=== PATIENT | female | born 2000 | race Caucasian/White ===

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

== ENCOUNTER → 2019-07-01 | Outpatient (CLI) | payer SELFPAY ==
--- NOTE | 2019-07-01 16:25 | RADIOLOGY REPORT (SQ) ---
EXAM DESCRIPTION: U/S [id number] TRNABD 1GES W/ODOP COMPLETED DATE/TIME: 07/01/2019 2:55 pm REASON FOR STUDY: Z34.01 ENCNTR FOR SUPRVSN OF NORMAL FIRST PREG, FIRST TRIMESTER Z34.01 ENCNTR FOR SUPRVSN OF NORMAL FIRST PREG, FIRST TRIMES COMPARISON: None. TECHNIQUE: Transabdominal static and realtime grayscale images acquired of the pelvis. Additional se lected spectral and color Doppler images recorded. All images stored on PACs. bHCG: Not available. CLINICAL DATES: LMP 05/06/2019. 8 weeks 0 days. LIMITATIONS: None. FINDINGS: FETUS: Single Living intrauterine . ULTRASOUND EGA: 8 weeks 0 days. ULTRASOUND MONICA: 02/10/2020 EFW: Not applicable less than 20 weeks. CRL: 1.6 cm. FHR: 160 beats per minute. SURVEY: Too early to assess. AMNIOTIC FLUID: Adequate amount. PLACENTA: Not yet developed due to early gestation. SUBCHORIONIC BLEED: No SIZE OF BLEED: Not applicable. UTERUS: No masses. No anomalies. CERVICAL LENGTH: 1.7 cm. Closed. RIGHT ADNEXA: Normal ovary with normal vascular flow. 3 x 2.1 x 1.9 cm. No adnexal free fluid. No adnexal masses. LEFT ADNEXA: Normal ovary with normal vascular flow. 2.4 x 1.6 x 1.5 cm. No adnexal free fluid. No adnexal masses. FREE FLUID: None. OTHER: No other significant finding. IMPRESSION: LIVING INTRAUTERINE . EGA 8 weeks 0 days. Trimester of : First trimester - 0 to 13 weeks. TECHNICAL DOCUMENTATION: JOB ID: [id number] [employer]- All Rights Reserved rev-10/04 Reading location - IP/workstation name: [email or web address]
== END ==
LOC: RAD 14:26
PROVIDERS: ATTEND Midwife
DX: Z34.01 Encounter for supervision of normal first pregnancy, first trimester (principal); Z3A.08 8 weeks gestation of pregnancy
CPT/HCPCS: 76801

== ENCOUNTER → 2019-08-17 | Outpatient (CLI) | payer SELFPAY ==
--- NOTE | 2019-08-17 15:39 | RADIOLOGY REPORT (SQ) ---
EXAM DESCRIPTION: U/S OB 14+ TRNABD 1GES W/O DOP IMAGES COMPLETED DATE/TIME: 08/17/2019 2:59 pm REASON FOR STUDY: Z34.01 ENCNTR FOR SUPRVSN OF NORMAL FIRST PREG, FIRST TRIMESTER Z34.01 ENCNTR FOR SUPRVSN OF NORMAL FIRST PREG, FIRST TRIMES COMPARISON: None. TECHNIQUE: Static and Dynamic grayscale imaging performed of gravid uterus using transabdominal appr oach. Additional selected color Doppler and spectral images recorded. All stored on PACS. LIMITATIONS: None. FINDINGS: FETUSES SEEN:1 EGA: 14 weeks 4 days. Calculated using BPD,FL,HC,AC documented on images. No discrepancy with clinic al dates. MONICA: 02/11/2020 EFW: Not calculated. Grams PERCENTILE: Not applicable. LVP: 4.1 x 2.6 cm. PLACENTA: Anterior. GRADE: I PRESENTATION: Variable. HEART RATE: 147 beats per minute. anatomy was not assessed. MATERNAL ADNEXA: Maternal ovaries not visualized. CERVICAL LENGTH: 2.8 cm. Closed. OTHER: No other significant finding. IMPRESSION: LIVING INTRAUTERINE . ESTIMATED GESTATIONAL AGE 14 weeks 4 days. anatomy was not assessed. Trimester of : Second trimester - 13 weeks 1 day to 27 weeks 6 days. TECHNICAL DOCUMENTATION: JOB ID: [id number] 2010 [employer]- All Rights Reserved Reading location - IP/workstation name: [email or web address]
== END ==
LOC: RAD 13:46
PROVIDERS: ATTEND Midwife
DX: Z34.82 Encounter for supervision of other normal pregnancy, second trimester (principal); Z3A.14 14 weeks gestation of pregnancy
CPT/HCPCS: 76805

== ENCOUNTER → 2019-09-24 | Outpatient (CLI) | payer MEDICAID ==
--- NOTE | 2019-09-24 15:18 | RADIOLOGY REPORT (SQ) ---
EXAM DESCRIPTION: U/S OB 14+ TRNABD 1GES W/O DOP IMAGES COMPLETED DATE/TIME: 09/24/2019 3:04 pm REASON FOR STUDY: ENCNTR FOR SUPRVSN OF NORMAL FIRST PREG, SECOND TRIMESTE Z34.02 ENCNTR FOR SUPRVS N OF NORMAL FIRST PREG, SECOND TRIME COMPARISON: 08/17/2019 TECHNIQUE: Static and Dynamic grayscale imaging performed of gravid uterus using transabdominal appr oac. Additional selected color Doppler and spectral images recorded. All stored on PACS. LIMITATIONS: None. FINDINGS: FETUSES SEEN:1 EGA: 19 weeks 3 days. Calculated using BPD,FL,HC,AC documented on images. No discrepancy with clinic al dates. MONICA: 02/15/2020 EFW: 290 grams PERCENTILE: Not available. AIMEE: 7.8. LBP: 3.0 X 2.0 CM PLACENTA: Anterior location. GRADE: I PRESENTATION: Breech. ANATOMY: HEART RATE: 149 beats per minute. FOUR CHAMBER HEART: Visualized. THREE VESSEL CORD: Not visualized. CORD INSERTION: Not visualized. KIDNEYS AND BLADDER: Not visualized. STOMACH: Visualized. Appears normal. SPINE: Normal as visualized. BRAIN AND LATERAL VENTRICLES: Visualized. Appear normal. OTHER: No other significant finding. MATERNAL ADNEXA: Maternal ovaries not visualized. CERVICAL LENGTH: 2.7 cm. Closed. OTHER: No other significant finding. IMPRESSION: LIVING INTRAUTERINE . ESTIMATED GESTATIONAL AGE 19 WEEKS 3 DAYS. AIMEE IS 7.8 CONSISTENT WITH OLIGOHYDRAMNIOS. LVP IS MEASURED AT 3.0 X 2.0 CM. Trimester of : Second trimester - 13 weeks 1 day to 27 weeks 6 days. TECHNICAL DOCUMENTATION: JOB ID: [id number] [employer]- All Rights Reserved Reading location - IP/workstation name: [email or web address]
== END ==
LOC: RAD 13:51
PROVIDERS: ATTEND Midwife
DX: O41.02X0 Oligohydramnios, second trimester, not applicable or unspecified (principal); Z3A.19 19 weeks gestation of pregnancy
CPT/HCPCS: 76805

== ENCOUNTER 2019-11-30 14:59 | Outpatient (CLI) | payer MEDICAID ==
[~2019-11-30 14:59] MED LIST: BETAMET ACET/BETAMET NA INJ 6 MG/1 ML IM ONE
[2019-11-30] MEDS ORDERED: BETAMET ACET/BETAMET NA INJ 6 MG/1 ML ONE (15:49)
[2019-11-30] MEDS ORDERED: MAGNESIUM SULFATE 20 GM/500 ML RTUINJ IV PRN (15:50)
[2019-11-30] MEDS ORDERED: BETAMET ACET/BETAMET NA INJ 6 MG/1 ML IM ONE (16:15)
[2019-11-30] MEDS ORDERED: MAGNESIUM SULFATE 4 GM/100 ML RTUPB IV ONE ×2 (16:15→16:22)
[2019-11-30 16:16] LABS: ABSOLUTE BASOPHILS # (AUTO) 0.1 10^3/uL (0.0-0.2); ABSOLUTE EOSINOPHILS # (AUTO) 0.1 10^3/uL (0.0-0.6); ABSOLUTE LYMPHOCYTES (AUTO) 1.9 10^3/uL (0.5-4.7); ABSOLUTE NEUT (AUTO) 5.6 10^3/uL (1.7-8.2); BASOPHILS % (AUTO) 0.6 % (0-2); EOSINOPHILS % (AUTO) 0.6 % (0-6); HEMATOCRIT 37.3 % (36.0-47.0); LYMPHOCYTES % (AUTO) 21.9 % (13-45); MEAN CORPUSCULAR HEMOGLOBIN 31.5 pg (27.0-33.4); MEAN CORPUSCULAR HGB CONC 34.8 g/dL (32.0-36.0); MEAN CORPUSCULAR VOLUME 91 fl (80-97); PLATELET COUNT 302 10^3/uL (150-450); RED BLOOD COUNT 4.12 10^6/uL (3.72-5.28); RED CELL DISTRIBUTION WIDTH 13.1 % (11.5-14.0); SEGMENTED NEUTROPHILS % (AUTO) 64.9 % (42-78); TOTAL CELLS COUNTED % (AUTO) 100 %; WHITE BLOOD COUNT 8.7 10^3/uL (4.0-10.5)
[2019-11-30] MEDS ORDERED: MAGNESIUM SULFATE 20 GM/500 ML RTUINJ IV ONE (16:22)
[2019-11-30 16:45] LABS: ALBUMIN 3.4 g/dL (3.5-5.0); ANION GAP 7 (5-19); BILIRUBIN,TOTAL 0.2 mg/dL (0.2-1.3); BLOOD UREA NITROGEN 8 mg/dL (7-20); CARBON DIOXIDE 19 mmol/L (22-30); CHLORIDE 109 mmol/L (98-107); GLUCOSE 70 mg/dL (75-110); NEONATAL BILIRUBIN RESULT 0.3 mg/dL (0.1-1.1); POTASSIUM 4.6 mmol/L (3.6-5.0); TOTAL PROTEIN 5.9 g/dL (6.3-8.2); URIC ACID 5.9 mg/dL (2.5-6.2)
--- NOTE | 2019-11-30 16:48 | PDOC TRANSFER SUMMARY ---
General Admission Date/PCP: SHANT GAUTHIER CNM Admission Date: 11/30/19 Transfer Date: 11/30/19 Accepting Facility: [facility] Accepting Physician: Dr. Reyes Resuscitation Status: Full Code - Transfer Diagnosis (1) Is this a current diagnosis for this admission?: Yes Diagnosis Summary: 29 5/7 wks. (2) Severe pre-eclampsia Is this a current diagnosis for this admission?: Yes - Transfer Medications Home Medications: Vit No.130/Iron/Folic [ Vitamins] 1 each PO DAILY 11/30/19 Transfer Medications: Current Medications Magnesium Sulfate (Magnesium Sulfate Rtu 4 Gm/100 Ml Premix Bag) 4 gm in 100 mls @ 200 mls/hr IV NOW ONE Stop: 11/30/19 16:44 Magnesium Sulfate (Magnesium Sulfate Rtu 20 Gm/500 Ml Premix) 20 gm in 500 mls @ 50 mls/hr IV CONTINUOUS PRN PRN Reason: THIS MED IS NOT "PRN" Stop: 12/30/19 15:49 - Allergies Allergies/Adverse Reactions: No Known Allergies Allergy (Verified 11/30/19 15:10) Hospital Course Hospital Course: patient was sent from the office for re-evaluation of elevated blood pressures. BPs today were severe range. First episode of mild range pressure were noted on 11/19/2019 and pre-e labs were obtained which the patient did not turn in until this past Saturday on 11/27/19. @4 hour urine returned >2000 mg. Her serology done on 11/19/2019 were normal. Today the patient complained of headache in the office that has resolved. Her bps have remained elevated in the severe ranges. I have initiated ACS protocol and started the patient on Mag Sulfate. Dr. Reyes at [facility] was kind enough to accept the patient for transfer due to concerns for need for very early delivery before 32 weeks and need for Level 4 NICU. Rapid Covid testing has been collected. Physical Exam Vital Signs: Intake & Output 11/29/19 11/30/19 12/01/19 06:59 06:59 06:59 Weight 83.9 kg General appearance: PRESENT: no acute distress, cooperative Extremities exam: PRESENT: +1 edema, other - DTRs +3 Results Laboratory Results: 11/30/19 15:50 11/30/19 15:50 WBC 8.7 RBC 4.12 Hgb 13.0 Hct 37.3 MCV 91 MCH 31.5 MCHC 34.8 RDW 13.1 Plt Count 302 Seg Neutrophils % 64.9 Plan Discharge Plan: proceed with transfer to [facility]. Thank you Dr. Reyes Time Spent: Greater than 30 Minutes
[2019-11-30 16:50] LABS: ALKALINE PHOSPHATASE 101 U/L (38-126); ASPARTATE AMINO TRANSFERASE 19 U/L (14-36)
[2019-11-30 17:02] LABS: APPEARANCE,URINE SLIGHTLY-CLOUDY; BILIRUBIN,URINE NEGATIVE (NEGATIVE); COLOR,URINE YELLOW; GLUCOSE, URINE NEGATIVE (NEGATIVE); KETONES,URINE NEGATIVE (NEGATIVE); LEUKOCYTE ESTERASE,URINE NEGATIVE (NEGATIVE); NITRITE,URINE NEGATIVE (NEGATIVE); PROTEIN,URINE >=500 mg/dL (NEGATIVE); UROBILINOGEN,URINE NEGATIVE mg/dL (<2.0)
[2019-11-30 17:17] LABS: URINE AMPHETAMINES SCREEN NEGATIVE; URINE BENZODIAZEPINES SCREEN NEGATIVE; URINE COCAINE SCREEN NEGATIVE; URINE MARIJUANA (THC) SCREEN NEGATIVE; URINE METHADONE SCREEN NEGATIVE; URINE PHENCYCLIDINE SCREEN NEGATIVE
[2019-11-30 17:18] LABS: URINE BARBITURATES SCREEN NEGATIVE
[2019-11-30] MEDS ORDERED: LABETALOL HCL 200 MG TABLET PO ONE (17:33)
[2019-11-30] MEDS ORDERED: LABETALOL HCL 200 MG TABLET ONE (17:35)
[2019-11-30 17:53] LABS: URINE CREATININE 131.2 mg/dL (16-327)
[2019-11-30 18:57] LABS: UR PRO/CREAT RATIO RESULT 4.7 mg/mg (0.0-0.2)
== END 2019-12-01 | disposition short-term general hospital (02) ==
LOC: LC 14:59
PROVIDERS: ATTEND Obstetrics & Gynecology
DX: O14.13 Severe pre-eclampsia, third trimester (principal); Z20.828 Contact with and (suspected) exposure to other viral communicable diseases; O26.893 Other specified pregnancy related conditions, third trimester; R09.89 Other specified symptoms and signs involving the circulatory and respiratory systems; R51 Headache; R19.7 Diarrhea, unspecified; Z3A.29 29 weeks gestation of pregnancy
CPT/HCPCS: 59899; 94760; 96372; 36415; 83615; 84156; 84550; 82570; 85025; 87635; 80053; 81001; 87081; 80307; J3475 ×2; J3490; J0702; C9803; C1758

== ENCOUNTER 2020-03-18 17:52 | Emergency (ER) | payer MEDICAID ==
--- NOTE | 2020-03-18 18:25 | ER Document Report ---
ED Medical Screen (RME) - General Chief Complaint: Insect Bite Stated Complaint: INSECT BITE ON LEG Time Seen by Provider: 03/18/20 18:20 Primary Care Provider: SHANT GAUTHIER CNM [Primary Care Provider] - Follow up as needed Mode of Arrival: Ambulatory Information source: Patient Notes: 19-year-old female presented to ED for a large swollen painful knot to the left leg just above the knee area on the medial side. She states she has had a small knot there for about 5 years and Saturday it started swelling and now it is large red inflamed. She states she was tested on 03/09/2020 for Covid because she was around people who had Covid. She states she was positive at that time but is still not having any symptoms of the Covid. She is alert oriented respirations regular nonlabored speaking in full sentences. Her weight is 72.5 kg and she is 5 foot 5. I have greeted and performed a rapid initial assessment of this patient. A comprehensive ED assessment and evaluation of the patient, analysis of test results and completion of medical decision making process will be conducted by an additional ED providers. TRAVEL OUTSIDE OF THE [place] IN LAST 30 DAYS: No - Related Data Allergies/Adverse Reactions: No Known Allergies Allergy (Verified 11/30/19 15:10) Past Medical History - Past Medical History Cardiac Medical History: Reports: Hx Heart Murmur - at /resolved Neurological Medical History: Reports: Hx Migraine Renal/ Medical History: Denies: Hx Peritoneal Dialysis GI Medical History: Reports: Hx Gastroesophageal Reflux Disease Past Surgical History: Reports: Hx Oral Surgery - [place] teeth all 4 - Immunizations Immunizations up to date: Yes Hx Diphtheria, Pertussis, Tetanus Vaccination: Yes Physical Exam - Vital signs Vitals: Temp Pulse Resp BP Pulse Ox 98.6 F 93 18 138/106 H 99 03/18/20 18:07 03/18/20 18:07 03/18/20 18:07 03/18/20 18:07 03/18/20 18:07 Course - Vital Signs Vital signs: Temp Pulse Resp BP Pulse Ox 98.6 F 93 18 138/106 H 99 03/18/20 18:07 03/18/20 18:07 03/18/20 18:07 03/18/20 18:07 03/18/20 18:07 Doctor's Discharge - Discharge Referrals: SHANT GAUTHIER CNM [Primary Care Provider] - Follow up as needed
[2020-03-18 21:17] LABS: ABSOLUTE BASOPHILS # (AUTO) 0.1 10^3/uL (0.0-0.2); ABSOLUTE EOSINOPHILS # (AUTO) 0.1 10^3/uL (0.0-0.6); ABSOLUTE LYMPHOCYTES (AUTO) 2.2 10^3/uL (0.5-4.7); ABSOLUTE MONOCYTES (AUTO) 0.5 10^3/uL (0.1-1.4); ABSOLUTE NEUT (AUTO) 3.9 10^3/uL (1.7-8.2); BASOPHILS % (AUTO) 0.8 % (0-2); EOSINOPHILS % (AUTO) 1.9 % (0-6); HEMATOCRIT 41.4 % (36.0-47.0); HEMOGLOBIN 14.7 g/dL (12.0-15.5); LYMPHOCYTES % (AUTO) 32.7 % (13-45); MEAN CORPUSCULAR HEMOGLOBIN 30.2 pg (27.0-33.4); MEAN CORPUSCULAR HGB CONC 35.6 g/dL (32.0-36.0); MEAN CORPUSCULAR VOLUME 85 fl (80-97); MONOCYTES % (AUTO) 6.9 % (3-13); PLATELET COUNT 358 10^3/uL (150-450); RED BLOOD COUNT 4.87 10^6/uL (3.72-5.28); RED CELL DISTRIBUTION WIDTH 12.7 % (11.5-14.0); SEGMENTED NEUTROPHILS % (AUTO) 57.7 % (42-78); TOTAL CELLS COUNTED % (AUTO) 100 %; WHITE BLOOD COUNT 6.7 10^3/uL (4.0-10.5)
[2020-03-18 21:36] LABS: ALBUMIN 4.7 g/dL (3.5-5.0); ALKALINE PHOSPHATASE 67 U/L (38-126); ANION GAP 12 (5-19); ASPARTATE AMINO TRANSFERASE 58 U/L (14-36); BILIRUBIN,DIRECT 0.1 mg/dL (0.0-0.4); BILIRUBIN,TOTAL 0.6 mg/dL (0.2-1.3); BLOOD UREA NITROGEN 14 mg/dL (7-20); CALCIUM 10.4 mg/dL (8.4-10.2); CARBON DIOXIDE 25 mmol/L (22-30); CHLORIDE 104 mmol/L (98-107); GLUCOSE 84 mg/dL (75-110); POTASSIUM 4.3 mmol/L (3.6-5.0); TOTAL PROTEIN 7.7 g/dL (6.3-8.2)
[2020-03-18 21:36] LABS: APPEARANCE,URINE SLIGHTLY-CLOUDY; BILIRUBIN,URINE NEGATIVE (NEGATIVE); COLOR,URINE YELLOW; GLUCOSE, URINE NEGATIVE (NEGATIVE); KETONES,URINE 20 mg/dL (NEGATIVE); LEUKOCYTE ESTERASE,URINE NEGATIVE (NEGATIVE); NITRITE,URINE NEGATIVE (NEGATIVE); PROTEIN,URINE >=500 mg/dL (NEGATIVE); URINE SPECIFIC GRAVITY 1.025
[2020-03-18] MEDS ORDERED: LIDOCAINE 1%/EPINEPHRINE INJ 20 ML VIAL INJ ONE (22:46)
--- NOTE | 2020-03-18 22:50 | ER Document Report ---
ED Skin Rash/Insect Bite/Abscs - General Chief Complaint: Abscess Stated Complaint: INSECT BITE ON LEG Time Seen by Provider: 03/18/20 18:20 Primary Care Provider: MATTHEW RODRIGUEZ DO [ACTIVE STAFF] - Follow up as needed Mode of Arrival: Ambulatory Notes: Patient is a 19-year-old female who comes to the emergency department for chief complaint of a tender, red, swollen area in the left distal thigh near the knee medially. She states that she has had a bump there for a while that has been t here for years, she states that for the past 6 days she has noticed this become harder, redder, and over the past day or so it has become very tender. She denies drainage from the area, fever/chills, nausea/vomiting, or any other complaints. She denies current , she denies any daily medications or past medical history. TRAVEL OUTSIDE OF THE [place] IN LAST 30 DAYS: No - Related Data Allergies/Adverse Reactions: No Known Allergies Allergy (Verified 03/19/20 00:27) Past Medical History - General Information source: Patient - Social History Smoking Status: Never Smoker Frequency of alcohol use: None Drug Abuse: None Lives with: Family Family History: Arthritis, CAD, DM, Hyperlipidemia, Hypertension, Malignancy, Thyroid Disfunction - Past Medical History Cardiac Medical History: Reports: Hx Heart Murmur - at /resolved Neurological Medical History: Reports: Hx Migraine Renal/ Medical History: Denies: Hx Peritoneal Dialysis GI Medical History: Reports: Hx Gastroesophageal Reflux Disease Past Surgical History: Reports: Hx Oral Surgery - [place] teeth all 4 - Immunizations Immunizations up to date: Yes Hx Diphtheria, Pertussis, Tetanus Vaccination: Yes Review of Systems - Review of Systems Constitutional: No symptoms reported EENT: No symptoms reported Cardiovascular: No symptoms reported Respiratory: No symptoms reported Gastrointestinal: No symptoms reported Genitourinary: No symptoms reported Female Genitourinary: No symptoms reported Musculoskeletal: No symptoms reported Skin: See HPI Hematologic/Lymphatic: No symptoms reported Neurological/Psychological: No symptoms reported Physical Exam - Vital signs Vitals: Temp Pulse Resp BP Pulse Ox 98.6 F 93 18 138/106 H 99 03/18/20 18:07 03/18/20 18:07 03/18/20 18:07 03/18/20 18:07 03/18/20 18:07 - Notes Notes: GENERAL: Alert, interacts well. No acute distress. HEAD: Normocephalic, atraumatic. EYES: Pupils equal, round, and reactive to light. Extraocular movements intact. ENT: Oral mucosa moist, tongue midline. Oropharynx unremarkable. Airway patent. NECK: Full range of motion. Supple. Trachea midline. No lymphadenopathy. LUNGS: Clear to auscultation bilaterally, no wheezes, rales, or rhonchi. No respiratory distress. Non-tender chest wall. HEART: Regular rate and rhythm. No murmur ABDOMEN: Soft, non-tender. Non-distended. EXTREMITIES: Moves all 4 extremities spontaneously. No edema, normal radial and dorsalis pedis pulses bilaterally. No cyanosis. BACK: no cervical, thoracic, lumbar midline tenderness. No saddle anesthesia, normal distal neurovascular exam. Moves all extremities in full range of motion. NEUROLOGICAL: Alert and oriented x3. Normal speech. Cranial nerves II through XII grossly intact. Strength 5/5 in all extremities. PSYCH: Normal affect, normal mood. SKIN: There is an obvious circular infected cystlike area in the medial distal thigh adjacent to the left knee area but not including the knee, there is surrounding erythema and cellulitis spreading over the distal medial thigh but no streaking away from the area. Full range of motion of the knee with no noted involvement, normal distal neurovascular exam, normal lower extremity exam otherwise. Course - Re-evaluation Re-evalutation: Evaluation is consistent with an infected sebaceous cyst which formed an abscess, surrounding cellulitis, however is otherwise unremarkable. Laboratory work-up from triage reviewed and nonspecific, no leukocytosis or bandemia, patient is afebrile. Area was drained, dressed, discussed, follow-up, return details. Patient states understanding and agreement. Stable and well-appearing at time of discharge. - Vital Signs Vital signs: Temp Pulse Resp BP Pulse Ox 97.8 F 88 16 134/70 H 96 03/19/20 00:51 03/19/20 00:51 03/19/20 00:51 03/19/20 00:51 03/19/20 00:51 - Laboratory Result Diagrams: 03/18/20 20:48 03/18/20 20:48 Laboratory results interpreted by me: 03/18/20 03/18/20 20:45 20:48 Calcium 10.4 H AST 58 H ALT 98 H Urine Protein >=500 H Urine Ketones 20 H Urine Blood LARGE H Urine Urobilinogen 4.0 H Procedures - Incision and Drainage Left distal thigh Type: Single Anesthetic type: 1% Lidocaine w/epi mL's of anesthetic: 6 Blade size: 11 I&D procedure: Chlorprep applied, Shurclens applied, Sterile dressing applied Incision Method: Incision made by scalpel Amount/type of drainage: Moderate amount of purulent drainage with thick cheesy appearance Discharge - Discharge Clinical Impression: Abscess Cellulitis Qualifiers: Site of cellulitis: extremity Site of cellulitis of extremity: lower extremity Laterality: left Qualified Code(s): L03.116 - Cellulitis of left lower limb Condition: Stable Disposition: HOME, SELF-CARE Additional Instructions: Your evaluation is most consistent with a sebaceous cyst abscess with surrounding infection (cellulitis). The infected cyst has been drained, keep cl juan with soap and water, keep an absorbent dressing over the area and change this at least daily. Take the antibiotics as prescribed to completion. I recommend you elevate your leg is much as possible the first couple of days. You can take Tylenol and ibuprofen together if needed for pain or the stronger pain medication provided if needed to sleep. Consider following up with the dermatology referral to have removal of the cyst after this heals. See referral. Return if you worsen including worsening spreading, swelling, or pain, developing a fever, or any other concerning or worsening symptoms. Prescriptions: Cephalexin Monohydrate [Keflex 500 mg Capsule] 500 mg PO QID #28 capsule Referrals: MATTHEW RODRIGUEZ DO [ACTIVE STAFF] - Follow up as needed
[2020-03-19] MEDS ORDERED: HYDROCODONE/ACETAMINOPHEN 5-325 MG (6 TAB/ER DISP) PO PRN (00:27)
[2020-03-19] MEDS ORDERED: CEPHALEXIN 500 MG CAPSULE PO ONE (00:27)
[2020-03-19 00:54] VITALS: BP 134/70
== END 2020-03-19 00:55 | disposition home or self-care (01) ==
LOC: ER 17:52
DX: L02.416 Cutaneous abscess of left lower limb (principal); L03.116 Cellulitis of left lower limb
CPT/HCPCS: 99283; 36415; 84703; 85025; 80053; 81001; 10060; J3490